=== PATIENT | male | born 1990 ===

== ENCOUNTER 2017-10-06 00:40 | Observation (INO) | payer SELFPAY ==
[2017-10-06] MEDS ORDERED: Sodium Chloride 0.9% 1,000 ML IV STA (01:40)
--- NOTE | 2017-10-06 02:02 | ED PDOC ---
HPI: Abdomen Chief Complaint (Provider): RLQ pain x 3 days History Per: Patient History/Exam Limitations: no limitations Onset/Duration Of Symptoms: Days (3) Severity: Severe Pain Scale Rating Of: 9 Location Of Pain/Discomfort: RLQ, Periumbilical Quality Of Discomfort: Sharp Associated Symptoms: Chills, Nausea, Vomiting, Diarrhea. denies: Fever, Back Pain, Chest Pain, Urinary Symptoms Exacerbating Factors: Movement Alleviating Factors: None Additional History Per: Patient <Shabbir Leo - Last Filed: 10/06/17 05:10> <Jamshid Harper - Last Filed: 10/07/17 05:41> Chief Complaint (Nursing): Abdominal Pain Additional Complaint(s): 26 year old male presents with worsening abdominal pain over past 3 days. First day patient had pain RLQ. Day 2 pain with associated nausea and diarrhea. Day 3 worsening pain, 9/10 in severity, now radiating to periumbilical area and with associated chills, mild nausea. No diarrhea today. He took Motrin without improvement of pain. No dyspnea, chest pain, testicular pain, or urinary symptoms, No surgical hx. (Shabbir Leo) Supervising Attending Note - Supervising Attending Note The Documented history was done by the: [employer] Executive Director The documented physical exam was done by the: Physician [employer] Executive Director - Attestation: I have personally seen and examined this patient.: Yes I have fully participated in the care of the patient.: Yes I have reviewed all pertinent clinical information: Yes <Jamshid Harper - Last Filed: 10/07/17 05:41> Past Medical History - Medical History PMH: No Chronic Diseases - Surgical History Surgical History: No Surg Hx - Family History Family History: States: Unknown Family Hx <Shabbir Leo - Last Filed: 10/06/17 05:10> <Jamshid Harper - Last Filed: 10/07/17 05:41> Vital Signs: Last Vital Signs Temp 98.3 F 10/07/17 00:32 Pulse 87 10/07/17 00:32 Resp 18 10/07/17 00:32 BP 134/80 10/07/17 00:32 Pulse Ox 97 10/07/17 00:32 - Allergies Allergies/Adverse Reactions: Allergies Allergy/AdvReac Type Severity Reaction Status Date / Time No Known Allergies Allergy Verified 10/06/17 00:49 Review of Systems Constitutional: Positive for: Chills. Negative for: Fever Eyes: Negative for: Vision Change ENT: Negative for: Nose Congestion Cardiovascular: Negative for: Chest Pain, Palpitations, Light Headedness Respiratory: Negative for: Cough, Shortness of Breath Gastrointestinal: Positive for: Nausea, Abdominal Pain, Diarrhea. Negative for : Vomiting, Constipation Genitourinary Male: Negative for: Dysuria, Frequency, Hematuria, Scrotal Pain Skin: Negative for: Rash Neurological: Negative for: Weakness, Numbness, Altered Mental Status Psych: Negative for: Anxiety, Depression <Shabbir Leo - Last Filed: 10/06/17 05:10> Physical Exam - Reviewed Vital Signs Reviewed: Yes - Physical Exam Appears: Positive for: Uncomfortable Head Exam: Positive for: ATRAUMATIC, NORMAL INSPECTION, NORMOCEPHALIC Skin: Positive for: Normal Color, Warm Eye Exam: Positive for: Normal appearance, EOMI, PERRL ENT: Positive for: Normal ENT Inspection Neck: Positive for: Normal, Painless ROM Cardiovascular/Chest: Positive for: Regular Rate, Rhythm, Tachycardia. Negative for: JVD, Murmur Respiratory: Positive for: Normal Breath Sounds. Negative for: Rales, Rhonchi, Stridor, Wheezing, Respiratory Distress Gastrointestinal/Abdominal: Positive for: Tenderness (RLQ, periumbilcal, + rovsings, +psoas, +obturator). Negative for: Distended, Rebound Extremity: Negative for: Tenderness, Pedal Edema Neurologic/Psych: Positive for: Alert, accounts receivable representative II-XII, Mood/Affect (appropriate) <Shabbir Leo - Last Filed: 10/06/17 05:10> - Laboratory Results Result Diagrams: 10/06/17 02:50 10/06/17 02:50 - ECG O2 Sat by Pulse Oximetry: 99 <Shabbir Leo - Last Filed: 10/06/17 05:10> - Laboratory Results Result Diagrams: 10/06/17 02:50 10/06/17 16:40 <Jamshid Harper - Last Filed: 10/07/17 05:41> - Progress ED Course And Treament: TIME 1:45 : 26 year old male with worsening RLQ pain, nausea vomiting, significantly tender abdomen Rule out appendicitis, unlikely nephrolithiasis given absence of urinary symptoms --CBC --CMP -COAGS --LIPASE --URINE DIP --BLOOD CULTURE --MORPHINE 2MG --1L NS BOLUS Case d/w Dr. Harper TIME: 5:00 pain persists, no nausea. results of labs/imaging d/w patient. WBC: 15, K+: 5.2 Zosyn x 1 Surgery consult - Dr. Naik. CT A/P results : FINDINGS: Lung bases: No acute findings. ABDOMEN: Liver: Fatty infiltration. Gallbladder and bile ducts: No calcified stones. No ductal dilation. Pancreas: No ductal dilation. No mass. Spleen: No splenomegaly. Adrenals: No mass. Kidneys and ureters: No mass. No hydronephrosis. Stomach and bowel: No definite mural thickening. No obstruction. PELVIS: Appendix: Enlarged appendix, measuring up to 1.2 cm in diameter. Mucosal enhancement. Mild stranding about appendix. Bladder: Unremarkable. Reproductive: Unremarkable as visualized. ABDOMEN and PELVIS: Intraperitoneal space: Small free fluid within pelvis. No free air. Bones/joints: No acute fracture. Soft tissues: Tiny umbilical hernia containing fat. Tiny inguinal hernias containing fat. Vasculature: Unremarkable. No aneurysm. Lymph nodes: No pathologically enlarged lymph nodes. IMPRESSION: 1. Acute appendicitis. 2. Incidental/non-acute findings are described above. Patient to be admitted for acute appendicitis. Case was discussed with Dr. Harper (Shabbir Leo) Disposition - Disposition Disposition Time: 05:12 - Pt Status Changed To: Hospital Disposition Of: Inpatient - Admit Certification Admit to Inpatient:: After my assessment, the patient will require hospitalization for at least two midnights. This is because of the severity of symptoms shown, intensity of services needed, and/or the medical risk in this patient being treated as an outpatient. <Shabbir Leo - Last Filed: 10/06/17 05:10> <Jamshid Harper - Last Filed: 10/07/17 05:41> - Clinical Impression Clinical Impression: Acute appendicitis - Disposition Condition: STABLE
[2017-10-06] MEDS ORDERED: Morphine 4 MG/ML VIAL ONE (02:45)
[2017-10-06 03:10] LABS: BASO % 0.2 % (0.0-2.0); EOS # 0.1 K/uL (0.0-0.7); EOS % 0.8 % (0.0-4.0); HEMOGLOBIN 13.1 g/dL (12.0-18.0); LYMPH # 1.7 K/uL (1.0-4.3); LYMPH % 11.4 % (20.0-40.0); MEAN CORPUSCULAR HEMOGLOBIN 22.5 pg (27.0-31.0); MEAN CORPUSCULAR HGB CONC 32.4 g/dL (33.0-37.0); MEAN PLATELET VOLUME 8.4 fl (7.2-11.7); MONO # 0.9 K/uL (0.0-0.8); MONO % 5.9 % (0.0-10.0); NEUT # 12.2 K/uL (1.8-7.0); NEUT % 81.7 % (50.0-75.0); NRBC % 0.1 % (0.0-0.0); RBC 5.81 Mil/uL (4.40-5.90); RED CELL DISTRIBUTION WIDTH 14.4 % (11.5-14.5)
[2017-10-06 03:15] LABS: URINE BACTERIA RARE (<OCC); URINE BILIRUBIN NEGATIVE (NEGATIVE); URINE BLOOD NEGATIVE (NEGATIVE); URINE CLARITY CLEAR (Clear); URINE COLOR STRAW (YELLOW); URINE GLUCOSE (UA) NEG (Normal); URINE LEUKOCYTE ESTERASE NEG Leu/uL (Negative); URINE PROTEIN NEGATIVE (NEGATIVE); URINE UROBILINOGEN 0.2-1.0 mg/dL (0.2-1.0)
[2017-10-06 03:17] LABS: INR 1.1 (0.9-1.2); PROTHROMBIN TIME 11.8 Seconds (9.8-13.1)
[2017-10-06 03:19] LABS: CALCIUM 9.3 mg/dL (8.4-10.2); GFR AFRICAN-AMERICAN > 60; GFR NON-AFRICAN AMERICAN > 60; LIPASE 59 U/L (23-300)
[2017-10-06 03:21] LABS: ALB/GLOB RATIO 1.4 (1.0-2.1); ALBUMIN 4.8 g/dL (3.5-5.0); ALT/SGPT 32 U/L (21-72); AST/SGOT 41 U/L (17-59); BLOOD UREA NITROGEN 16 mg/dl (9-20)
[2017-10-06] MEDS ORDERED: Sodium Chloride 0.9% 100 ML ONE (03:52)
[2017-10-06] MEDS ORDERED: Iohexol 300 100 ML IJ ONE (03:52)
--- NOTE | 2017-10-06 04:52 | CT ---
EXAM: CT Abdomen and Pelvis With Intravenous Contrast CLINICAL HISTORY: 26 years and, male; Pain; Abdominal pain; Localized; Right lower quadrant (rlq); Additional info: Abd pain TECHNIQUE: Axial computed tomography images of the abdomen and pelvis with intravenous contrast. All CT scans at this facility use one or more dose reduction techniques, viz.: automated exposure control; ma/kV adjustment per patient size (including targeted exams where dose is matched to indication; i.e. head); or iterative reconstruction technique. Coronal and sagittal reformatted images were created and reviewed. CONTRAST: 95 mL of OMNIPAQUE administered intravenously. COMPARISON: No relevant prior studies available. FINDINGS: Lung bases: No acute findings. ABDOMEN: Liver: Fatty infiltration. Gallbladder and bile ducts: No calcified stones. No ductal dilation. Pancreas: No ductal dilation. No mass. Spleen: No splenomegaly. Adrenals: No mass. Kidneys and ureters: No mass. No hydronephrosis. Stomach and bowel: No definite mural thickening. No obstruction. PELVIS: Appendix: Enlarged appendix, measuring up to 1.2 cm in diameter. Mucosal enhancement. Mild stranding about appendix. Bladder: Unremarkable. Reproductive: Unremarkable as visualized. ABDOMEN and PELVIS: Intraperitoneal space: Small free fluid within pelvis. No free air. Bones/joints: No acute fracture. Soft tissues: Tiny umbilical hernia containing fat. Tiny inguinal hernias containing fat. Vasculature: Unremarkable. No aneurysm. Lymph nodes: No pathologically enlarged lymph nodes. IMPRESSION: 1. Acute appendicitis. 2. Incidental/non-acute findings are described above.
[2017-10-06] MEDS ORDERED: Piperacillin/Tazobact 3.375 GM in Sodium Chloride 0.9% 100 ML IV STA (04:59)
[2017-10-06] MEDS ORDERED: HYDROmorphone 0.5 mg/0.5 ml ISec IVP PRN ×2 (05:12→10:05)
[2017-10-06 05:22] LABS: MEAN CELL VOLUME 69.5 fl (80.0-94.0)
[2017-10-06] MEDS ORDERED: Piperacillin/Tazobact 3.375 gm Inj IVPB ONE (05:26)
--- NOTE | 2017-10-06 05:39 | CP.PCM.HP ---
History of Present Illness - History of Present Illness History of Present Illness: PMD: Ed Demarco MD Chief Complaint: Abdominal Pain The patient was seen and examined in the ED HPI: 26 years old male with no significant past medical history comes with 3 days of Progressively worsening Left lower Quadrant abdominal pain, radiating to the periumbilical region and associated with nausea, vomits, diarrhea, and Chills.The pain was not relieved with Ibuprofen. No SOB, Chest pain, Dysuria, nor urinary frequency, no trauma. The severity of the pain was 02/03 PMH: No chronic Diseases PSH: Denies SH: occasional Alcohol use; never Smoked; no illegal drug use; Live with family ; FH: Family with Asthma Allergies: NKDA Medication: None Present on Admission - Present on Admission Any Indicators Present on Admission: No History of DVT/PE: No History of Uncontrolled Diabetes: No Urinary Catheter: No Decubitus Ulcer Present: No Review of Systems - Constitutional Constitutional: Chills, Headache. absent: Anorexia, Fatigue, Fever - EENT Eyes: absent: Floaters, Itchy Eyes, Requires Corrective Lenses, Sees Flashes Ears: absent: Decreased Hearing, Ear Discharge, Tinnitus Nose/Mouth/Throat: absent: Epistaxis, Nasal Congestion, Nasal Discharge, Sinus Pain, Sinus Pressure - Cardiovascular Cardiovascular: absent: Chest Pain, Dyspnea, Edema - Respiratory Respiratory: absent: Cough, Dyspnea, Wheezing, Stridor - Gastrointestinal Gastrointestinal: Abdominal Pain, Diarrhea, Nausea, Vomiting. absent: Constipation - Genitourinary Genitourinary: absent: Dysuria, Flank Pain, Hematuria, Urinary Frequency - Musculoskeletal Musculoskeletal: absent: Arthralgias, Back Pain, Joint Swelling, Muscle Weakness - Integumentary Integumentary: absent: Pruritus, Rash, Skin Ulcer, Sores, Striae, Swelling - Neurological Neurological: Headaches. absent: Confusion, Dizziness, Focal Weakness, Weakness - Psychiatric Psychiatric: absent: Anxiety, Depression, Panic Attacks - Endocrine Endocrine: absent: Palpitations, Polydipsia, Polyphagia, Polyuria - Hematologic/Lymphatic Hematologic: absent: Easy Bleeding, Easy Bruising Past Patient History - Past Medical History & Family History Past Medical History?: No - Past Social History Smoking Status: Never Smoked Chewing Tobacco Use: No Cigar Use: No Alcohol: Occasional Home Situation {Lives}: With Family - CARDIAC Hx Cardiac Disorders: No - PULMONARY Hx Respiratory Disorders: No - NEUROLOGICAL Hx Neurological Disorder: No - HEENT Hx HEENT Problems: No - RENAL Hx Chronic Kidney Disease: No - ENDOCRINE/METABOLIC Hx Endocrine Disorders: No - HEMATOLOGICAL/ONCOLOGICAL Hx Blood Disorders: No - INTEGUMENTARY Hx Dermatological Problems: No - MUSCULOSKELETAL/RHEUMATOLOGICAL Hx Musculoskeletal Disorders: No - GASTROINTESTINAL Hx Gastrointestinal Disorders: No - GENITOURINARY/GYNECOLOGICAL Hx Genitourinary Disorders: No - PSYCHIATRIC Hx Psychophysiologic Disorder: No Hx Substance Use: No - SURGICAL HISTORY Hx Surgeries: No - ANESTHESIA Hx Anesthesia: No Meds Allergies/Adverse Reactions: Allergies Allergy/AdvReac Type Severity Reaction Status Date / Time No Known Allergies Allergy Verified 10/06/17 00:49 Physical Exam - Constitutional Appears: No Acute Distress - Head Exam Head Exam: ATRAUMATIC, NORMAL INSPECTION, NORMOCEPHALIC - Eye Exam Eye Exam: EOMI, Normal appearance Pupil Exam: NORMAL ACCOMODATION, PERRL - ENT Exam ENT Exam: Mucous Membranes Moist, Normal Exam, Normal External Ear Exam - Neck Exam Neck exam: Positive for: Full Rom, Normal Inspection. Negative for: Lymphadenopathy, Tenderness - Respiratory Exam Respiratory Exam: Clear to Auscultation Bilateral. absent: Rales, Rhonchi, Wheezes, Stridor - Cardiovascular Exam Cardiovascular Exam: REGULAR RHYTHM, RRR, +S1, +S2. absent: Gallop, JVD - GI/Abdominal Exam Additional comments: Flat, soft, decreased bowel sounds, pain at RLQ and the periumbilical region, no guarding, moderate rebound tenderness present - Rectal Exam Rectal Exam: Deferred - Extremities Exam Extremities exam: Positive for: full ROM, normal inspection. Negative for: calf tenderness, pedal edema - Back Exam Back exam: CVA tenderness (R), NORMAL INSPECTION. absent: CVA tenderness (L) - Neurological Exam Neurological exam: Alert, CN II-XII Intact, Oriented x3, Reflexes Normal - Psychiatric Exam Psychiatric exam: Normal Affect, Normal Mood - Skin Skin Exam: Dry, Intact, Normal Color, Warm Results - Vital Signs Recent Vital Signs: Last Vital Signs Temp 99.5 F 10/06/17 01:36 Pulse 102 H 10/06/17 01:36 Resp 18 10/06/17 01:36 BP 148/96 H 10/06/17 01:36 Pulse Ox 99 10/06/17 05:12 - Labs Result Diagrams: 10/06/17 02:50 10/06/17 02:50 Labs: Laboratory Results - last 24 hr 10/06/17 10/06/17 10/06/17 02:50 02:50 02:50 WBC 15.0 H RBC 5.81 Hgb 13.1 Hct 40.4 MCV 69.5 L MCH 22.5 L MCHC 32.4 L RDW 14.4 Plt Count 219 MPV 8.4 Neut % (Auto) 81.7 H Lymph % (Auto) 11.4 L Hawkins % (Auto) 5.9 Eos % (Auto) 0.8 Baso % (Auto) 0.2 Neut # (Auto) 12.2 H Lymph # (Auto) 1.7 Hawkins # (Auto) 0.9 H Eos # (Auto) 0.1 Baso # (Auto) 0.0 PT 11.8 INR 1.1 APTT 34.0 Sodium 138 Potassium 5.2 H Chloride 99 Carbon Dioxide 27 Anion Gap 17 BUN 16 Creatinine 1.0 Est GFR ( Amer) > 60 Est GFR (Non-Af Amer) > 60 Random Glucose 115 H Calcium 9.3 Total Bilirubin 0.6 AST 41 ALT 32 Alkaline Phosphatase 91 Total Protein 8.1 Albumin 4.8 Globulin 3.3 Albumin/Globulin Ratio 1.4 Lipase 59 Urine Color Urine Clarity Urine pH Ur Specific [place] Urine Protein Urine Glucose (UA) Urine Ketones Urine Blood Urine Nitrate Urine Bilirubin Urine Urobilinogen Ur Leukocyte Esterase Urine RBC (Auto) Urine Microscopic WBC Urine Bacteria 10/06/17 02:50 WBC RBC Hgb Hct MCV MCH MCHC RDW Plt Count MPV Neut % (Auto) Lymph % (Auto) Hawkins % (Auto) Eos % (Auto) Baso % (Auto) Neut # (Auto) Lymph # (Auto) Hawkins # (Auto) Eos # (Auto) Baso # (Auto) PT INR APTT Sodium Potassium Chloride Carbon Dioxide Anion Gap BUN Creatinine Est GFR ( Amer) Est GFR (Non-Af Amer) Random Glucose Calcium Total Bilirubin AST ALT Alkaline Phosphatase Total Protein Albumin Globulin Albumin/Globulin Ratio Lipase Urine Color Straw Urine Clarity Clear Urine pH 6.0 Ur Specific [place] 1.017 Urine Protein Negative Urine Glucose (UA) Neg Urine Ketones Negative Urine Blood Negative Urine Nitrate Negative Urine Bilirubin Negative Urine Urobilinogen 0.2-1.0 Ur Leukocyte Esterase Neg Urine RBC (Auto) 1 Urine Microscopic WBC < 1 Urine Bacteria Rare - Imaging and Cardiology CT scan - abdomen Status: Report reviewed by me Additional comment: EXAM: CT Abdomen and Pelvis With Intravenous Contrast FINDINGS: Lung bases: No acute findings. ABDOMEN: Liver: Fatty infiltration. Gallbladder and bile ducts: No calcified stones. No ductal dilation. Pancreas: No ductal dilation. No mass. Spleen: No splenomegaly. Adrenals: No mass. Kidneys and ureters: No mass. No hydronephrosis. Stomach and bowel: No definite mural thickening. No obstruction. PELVIS: Appendix: Enlarged appendix, measuring up to 1.2 cm in diameter. Mucosal enhancement. Mild stranding about appendix. Bladder: Unremarkable. Reproductive: Unremarkable as visualized. ABDOMEN and PELVIS: Intraperitoneal space: Small free fluid within pelvis. No free air. Bones/joints: No acute fracture. Soft tissues: Tiny umbilical hernia containing fat. Tiny inguinal hernias containing fat. Vasculature: Unremarkable. No aneurysm. Lymph nodes: No pathologically enlarged lymph nodes. IMPRESSION: 1. Acute appendicitis. 2. Incidental/non-acute findings are described above. Assessment & Plan - Assessment and Plan (Free Text) Assessment: #. Acute Appendicitis #. Leukocytosis #. hyperkalemia Plan: 26 years old male with no significant past medical history comes with 3 days of Progressively worsening Left lower Quadrant abdominal pain, radiating to the periumbilical region and associated with nausea, vomits, diarrhea, and Chills.The pain was not relieved with Ibuprofen. No SOB, Chest pain, Dysuria, nor urinary frequency, no trauma. The severity of the pain was 9/10 #. Acute Appendicitis - Consult Dr Naik surgery - NPO - Zosyn - pain management - IV Fluids #. Neutrophylic Leukocytosis - Follow WBC #. Hyperkalemia - Follow Electrolytes #. DVT prophylaxis with SCD and with Lovenox post surgery as of 10/07/17 #. Code Status: Full - Date & Time Date: 10/06/17 Time: 05:39
[2017-10-06] MEDS: Sodium Chloride 0.9% 1,000 ML IV SCH ×2 (05:46→14:00)
--- NOTE | 2017-10-06 06:03 | CP.PCM.CON ---
History of Present Illness - History of Present Illness History of Present Illness: Surgery 26M w no sig PMH came to ED with RLQ abd pain started 2 days ago. Pain is located on RLQ and periumbilical area. Associated with nausea, vomiting, diarrhea. No bloody, non bilious. Pt also reports that he hit his abdomen and pain is worsen. Nothing relieved the pain and worsen with movement. Also reports anorexia, abd bloating and firmness. Denies fever, chest pain, sick contact, recent travel, hemoptesis,hemetemesis, dysuria, hematuria, hematochezia , melena . First time having these symptoms. Surgery is consulted to evaluate for appendicitis. WBC is 15. Mild tachycardia [address] reads acute appendicitis with 1.2 dilated appendix. Pt is consent for OR. Last PO was yesterday. PMH: Denies PSH: Denies Med: none Review of Systems - Review of Systems Review of Systems: See HPI Past Patient History - Past Social History Smoking Status: Never Smoked - PSYCHIATRIC Hx Substance Use: No - SURGICAL HISTORY Hx Surgeries: No - ANESTHESIA Hx Anesthesia: No Meds Allergies/Adverse Reactions: Allergies Allergy/AdvReac Type Severity Reaction Status Date / Time No Known Allergies Allergy Verified 10/06/17 00:49 - Medications Medications: Current Medications Acetaminophen (Tylenol 650 Mg Supp) 650 mg AR Q4 PRN PRN Reason: Fever >100.4 F Hydromorphone HCl (Dilaudid) 1 mg IVP Q4 PRN PRN Reason: Pain, severe (8-10) Piperacillin Sod/Tazobactam (Sod 3.375 gm/ Sodium Chloride) 100 mls @ 100 mls/ hr IV STAT STA PRN Reason: Protocol Stop: 10/06/17 05:58 Last Admin: 10/06/17 05:45 Dose: 100 mls/hr Sodium Chloride (Sodium Chloride 0.9%) 1,000 mls @ 125 mls/hr IV .Q8H [facility] Stop: 10/07/17 05:11 Last Admin: 10/06/17 05:46 Dose: 125 mls/hr Ondansetron HCl (Zofran Inj) 4 mg IVP Q4 PRN PRN Reason: Nausea/Vomiting Physical Exam - Constitutional Appears: Non-toxic - Head Exam Head Exam: ATRAUMATIC, NORMAL INSPECTION, NORMOCEPHALIC - Eye Exam Eye Exam: EOMI, Normal appearance, PERRL Pupil Exam: NORMAL ACCOMODATION, PERRL - ENT Exam ENT Exam: Mucous Membranes Moist, Normal Exam - Neck Exam Neck exam: Positive for: Normal Inspection - Respiratory Exam Respiratory Exam: Clear to Auscultation Bilateral, NORMAL BREATHING PATTERN - Cardiovascular Exam Cardiovascular Exam: Tachycardia, REGULAR RHYTHM, +S1, +S2 - GI/Abdominal Exam GI & Abdominal Exam: Distended, Firm, Guarding, Normal Bowel Sounds, Rebound, Tenderness. absent: Hernia, Hypoactive Bowel Sounds, Mass, Organomegaly, Pulsatile Mass, Rigid Additional comments: RLQ TTP, Periumbilical TTP. Psoas sign + , obturator sign + - Extremities Exam Extremities exam: Positive for: full ROM, normal inspection - Back Exam Back exam: NORMAL INSPECTION - Psychiatric Exam Psychiatric exam: Normal Affect, Normal Mood - Skin Skin Exam: Dry, Intact, Normal Color, Warm Results - Vital Signs Recent Vital Signs: Last Vital Signs Temp 98.3 F 10/06/17 05:41 Pulse 80 10/06/17 05:41 Resp 18 10/06/17 05:41 BP 141/87 10/06/17 05:41 Pulse Ox 97 10/06/17 05:41 - Labs Result Diagrams: 10/06/17 02:50 10/06/17 02:50 Labs: Laboratory Results - last 24 hr 10/06/17 10/06/17 10/06/17 02:50 02:50 02:50 WBC 15.0 H RBC 5.81 Hgb 13.1 Hct 40.4 MCV 69.5 L MCH 22.5 L MCHC 32.4 L RDW 14.4 Plt Count 219 MPV 8.4 Neut % (Auto) 81.7 H Lymph % (Auto) 11.4 L Lamb % (Auto) 5.9 Eos % (Auto) 0.8 Baso % (Auto) 0.2 Neut # (Auto) 12.2 H Lymph # (Auto) 1.7 Lamb # (Auto) 0.9 H Eos # (Auto) 0.1 Baso # (Auto) 0.0 PT 11.8 INR 1.1 APTT 34.0 Sodium 138 Potassium 5.2 H Chloride 99 Carbon Dioxide 27 Anion Gap 17 BUN 16 Creatinine 1.0 Est GFR ( Amer) > 60 Est GFR (Non-Af Amer) > 60 Random Glucose 115 H Calcium 9.3 Total Bilirubin 0.6 AST 41 ALT 32 Alkaline Phosphatase 91 Total Protein 8.1 Albumin 4.8 Globulin 3.3 Albumin/Globulin Ratio 1.4 Lipase 59 Urine Color Urine Clarity Urine pH Ur Specific [place] Urine Protein Urine Glucose (UA) Urine Ketones Urine Blood Urine Nitrate Urine Bilirubin Urine Urobilinogen Ur Leukocyte Esterase Urine RBC (Auto) Urine Microscopic WBC Urine Bacteria 10/06/17 02:50 WBC RBC Hgb Hct MCV MCH MCHC RDW Plt Count MPV Neut % (Auto) Lymph % (Auto) Lamb % (Auto) Eos % (Auto) Baso % (Auto) Neut # (Auto) Lymph # (Auto) Lamb # (Auto) Eos # (Auto) Baso # (Auto) PT INR APTT Sodium Potassium Chloride Carbon Dioxide Anion Gap BUN Creatinine Est GFR ( Amer) Est GFR (Non-Af Amer) Random Glucose Calcium Total Bilirubin AST ALT Alkaline Phosphatase Total Protein Albumin Globulin Albumin/Globulin Ratio Lipase Urine Color Straw Urine Clarity Clear Urine pH 6.0 Ur Specific [place] 1.017 Urine Protein Negative Urine Glucose (UA) Neg Urine Ketones Negative Urine Blood Negative Urine Nitrate Negative Urine Bilirubin Negative Urine Urobilinogen 0.2-1.0 Ur Leukocyte Esterase Neg Urine RBC (Auto) 1 Urine Microscopic WBC < 1 Urine Bacteria Rare Assessment & Plan - Assessment and Plan (Free Text) Assessment: Acute appendicitis WBC 15 CT: acute appendicitis with 1.2cm dilated appendix and fat stranding -OR 9AM -NPO -IVF -ABX -Nausea/pain control TANIA Naik's PA
[2017-10-06] MEDS ORDERED: Propofol 10 mg/ml Inj (20 ML) ONE (07:35)
[2017-10-06] MEDS ORDERED: Lidocaine 4% (Laryng-O-Jet) Kit MM ONE (07:36)
[2017-10-06] MEDS ORDERED: Rocuronium 10 mg/ml (5 ml) ONE (07:36)
[2017-10-06] MEDS ORDERED: Midazolam 2 MG/2 ML VIAL ONE (07:36)
[2017-10-06] MEDS ORDERED: Succinylcholine 200 mg/10 ml Inj IV ONE (07:36)
[2017-10-06] MEDS ORDERED: Bupivacaine HCl 0.5% PF (30 ml) Inj ONE (08:27)
[2017-10-06] MEDS ORDERED: Lactated Ringer's 1,000 ML IV ONE (08:53)
[2017-10-06 09:03] LABS: BLOOD UREA NITROGEN 14 mg/dl (9-20); CALCIUM 9.1 mg/dL (8.4-10.2); GFR AFRICAN-AMERICAN > 60; GFR NON-AFRICAN AMERICAN > 60
[2017-10-06] MEDS ORDERED: Neostigmine 1:1000 (1 mg/ml) Inj ONE (09:17)
[2017-10-06] MEDS ORDERED: Bupivacaine HCl 0.5% PF (30 ml) Inj IJ ONE (09:30)
[2017-10-06] MEDS ORDERED: Sodium Chloride 0.9% 500 ML IV ONE (09:53)
--- NOTE | 2017-10-06 09:58 | PCM.SURG1 ---
Surgeon's Initial Post Op Note - Surgeon's Notes Surgeon: MD Gumaro Mechanical Design Engineer: LEATHA Maher. ZACH [id number] Pre-Operative Diagnosis: Acute appendicitis Operative Findings: Inflammed appendix Post-Operative Diagnosis: Acute appendicitis Operation Performed: Laparoscopic appendectomy Specimen/Specimens Removed: Appendix Estimated Blood Loss: EBL {In ML}: 5 Date of Surgery/Procedure: 10/06/17 Time of Surgery/Procedure: 09:00
[2017-10-06] MEDS ORDERED: Oxycodone/Acetaminophen 5/325 mg Tab PO PRN (10:00)
[2017-10-06] MEDS: Piperacillin/Tazobact 3.375 GM in Sodium Chloride 0.9% 100 ML IVPB SCH ×3 (11:26→21:11)
[2017-10-06 17:40] LABS: BLOOD UREA NITROGEN 11 mg/dl (9-20); GFR AFRICAN-AMERICAN > 60; GFR NON-AFRICAN AMERICAN > 60
[2017-10-07] MEDS: Piperacillin/Tazobact 3.375 GM in Sodium Chloride 0.9% 100 ML IVPB SCH ×2 (04:42→09:02)
[2017-10-07 06:46] LABS: BASO % 0.2 % (0.0-2.0); EOS % 0.4 % (0.0-4.0); HEMOGLOBIN 12.6 g/dL (12.0-18.0); LYMPH # 1.6 K/uL (1.0-4.3); LYMPH % 17.5 % (20.0-40.0); MEAN CORPUSCULAR HEMOGLOBIN 22.7 pg (27.0-31.0); MEAN CORPUSCULAR HGB CONC 32.8 g/dL (33.0-37.0); MEAN PLATELET VOLUME 8.4 fl (7.2-11.7); MONO # 0.6 K/uL (0.0-0.8); MONO % 6.4 % (0.0-10.0); NEUT # 6.7 K/uL (1.8-7.0); NEUT % 75.5 % (50.0-75.0); RBC 5.54 Mil/uL (4.40-5.90); WHITE BLOOD COUNT 8.9 K/uL (4.8-10.8)
[2017-10-07 06:55] LABS: MEAN CELL VOLUME 69.1 fl (80.0-94.0)
[2017-10-07 07:03] LABS: BLOOD UREA NITROGEN 10 mg/dl (9-20); CALCIUM 9.1 mg/dL (8.4-10.2); GFR AFRICAN-AMERICAN > 60; GFR NON-AFRICAN AMERICAN > 60
[2017-10-07 08:00] VITALS: BP 130/84; PULSE 72; RESP 20; TEMP 97.7; O2SAT 96
--- NOTE | 2017-10-07 08:02 | CP.PCM.PN ---
<Doroteo Peguero - Last Filed: 10/07/17 07:59> Subjective - Date & Time of Evaluation Date of Evaluation: 10/07/17 Time of Evaluation: 07:25 - Subjective Subjective: Patient seen and examined. No acute events over night. Tolerating diet. No complaints. Objective - Vital Signs/Intake and Output Vital Signs (last 24 hours): Temp Pulse Resp BP Pulse Ox 98.3 F 87 18 134/80 97 10/07/17 00:32 10/07/17 00:32 10/07/17 00:32 10/07/17 00:32 10/07/17 00:32 - Medications Medications: Current Medications Acetaminophen (Tylenol 650 Mg Supp) 650 mg AK Q4 PRN PRN Reason: Fever >100.4 F Acetaminophen (Tylenol 325mg Tab) 650 mg PO Q6 PRN PRN Reason: Pain, Mild (1-3) Last Admin: 10/07/17 02:36 Dose: 650 mg Enoxaparin Sodium (Lovenox) 40 mg SC DAILY ANANDA PRN Reason: Protocol Piperacillin Sod/Tazobactam (Sod 3.375 gm/ Sodium Chloride) 100 mls @ 100 mls/ hr IVPB Q6 ANANDA PRN Reason: Protocol Last Admin: 10/07/17 04:42 Dose: 100 mls/hr Ondansetron HCl (Zofran Inj) 4 mg IVP Q4 PRN PRN Reason: Nausea/Vomiting Oxycodone/Acetaminophen (Percocet 5/325 Mg Tab) 1 tab PO Q4 PRN PRN Reason: Pain, moderate (4-7) Stop: 10/09/17 10:01 Last Admin: 10/06/17 13:59 Dose: 1 tab - Labs Labs: 10/07/17 06:00 10/07/17 06:00 PT 11.8 Seconds (9.8-13.1) 10/06/17 02:50 INR 1.1 (0.9-1.2) 10/06/17 02:50 APTT 34.0 Seconds (25.6-37.1) 10/06/17 02:50 - Constitutional Appears: No Acute Distress - Head Exam Head Exam: NORMOCEPHALIC - Eye Exam Eye Exam: EOMI, Normal appearance - ENT Exam ENT Exam: Mucous Membranes Moist - Respiratory Exam Respiratory Exam: NORMAL BREATHING PATTERN - Cardiovascular Exam Cardiovascular Exam: +S1, +S2 - GI/Abdominal Exam GI & Abdominal Exam: Soft - Neurological Exam Neurological Exam: Alert, Awake, Oriented x3 - Psychiatric Exam Psychiatric exam: Normal Mood - Skin Skin Exam: Dry, Intact, Warm Assessment and Plan - Assessment and Plan (Free Text) Assessment: 26M with acute appendicitis s/p laparoscopic appendectomy POD 1 Plan: Tolerating diet D/C home with analgesic and antibiotic F/u with Dr. Naik in office Further recs per Dr. Lyla DOMINGUEZ PGY2 <Javier Arita - Last Filed: 10/07/17 10:34> Subjective - Date & Time of Evaluation Time of Evaluation: 09:50 - Subjective Subjective: Patient was seen and examined at the bedside. Agree with resident's note above. Objective - Vital Signs/Intake and Output Vital Signs (last 24 hours): Temp Pulse Resp BP Pulse Ox 97.7 F 72 20 130/84 96 10/07/17 07:59 10/07/17 07:59 10/07/17 07:59 10/07/17 07:59 10/07/17 07:59 - Medications Medications: Current Medications Acetaminophen (Tylenol 650 Mg Supp) 650 mg AK Q4 PRN PRN Reason: Fever >100.4 F Acetaminophen (Tylenol 325mg Tab) 650 mg PO Q6 PRN PRN Reason: Pain, Mild (1-3) Last Admin: 10/07/17 02:36 Dose: 650 mg Enoxaparin Sodium (Lovenox) 40 mg SC DAILY ANANDA PRN Reason: Protocol Last Admin: 10/07/17 09:01 Dose: 40 mg Piperacillin Sod/Tazobactam (Sod 3.375 gm/ Sodium Chloride) 100 mls @ 100 mls/ hr IVPB Q6 ANANDA PRN Reason: Protocol Last Admin: 10/07/17 09:02 Dose: 100 mls/hr Ondansetron HCl (Zofran Inj) 4 mg IVP Q4 PRN PRN Reason: Nausea/Vomiting Oxycodone/Acetaminophen (Percocet 5/325 Mg Tab) 1 tab PO Q4 PRN PRN Reason: Pain, moderate (4-7) Stop: 10/09/17 10:01 Last Admin: 10/06/17 13:59 Dose: 1 tab - Labs Labs: 10/07/17 06:00 10/07/17 06:00 PT 11.8 Seconds (9.8-13.1) 10/06/17 02:50 INR 1.1 (0.9-1.2) 10/06/17 02:50 APTT 34.0 Seconds (25.6-37.1) 10/06/17 02:50 - GI/Abdominal Exam Additional comments: soft, mild mayo-incisional tenderness, ND, BS+, no rebound, no guarding, incisions clean, no erythema, no drainage, dermobond in place Assessment and Plan - Assessment and Plan (Free Text) Plan: - Clear for discharge home from general surgery stand point - Patient will follow up with Dr. Naik in the office in 10 days to 2 weeks
[2017-10-07] MEDS ORDERED: Enoxaparin 40 mg Syringe SC SCH (09:00)
--- NOTE | 2017-10-07 13:34 | CP.PCM.DIS ---
Provider - Provider Date of Admission: 10/06/17 04:59 Attending physician: Jose L Alonzo Primary care physician: PMD: Ed Demarco MD Consults: Dr. Naik, general surgeon Time Spent in preparation of Discharge (in minutes): 25 Hospital Course - Lab Results Lab Results: Micro Results 10/06/17 02:50 Blood Blood Culture - Preliminary NO GROWTH AFTER 24 HOURS 10/06/17 02:50 Blood Blood Culture - Preliminary NO GROWTH AFTER 24 HOURS Most Recent Lab Values WBC 8.9 K/uL (4.8-10.8) 10/07/17 06:00 RBC 5.54 Mil/uL (4.40-5.90) 10/07/17 06:00 Hgb 12.6 g/dL (12.0-18.0) 10/07/17 06:00 Hct 38.3 % (35.0-51.0) 10/07/17 06:00 MCV 69.1 fl (80.0-94.0) L 10/07/17 06:00 MCH 22.7 pg (27.0-31.0) L 10/07/17 06:00 MCHC 32.8 g/dL (33.0-37.0) L 10/07/17 06:00 RDW 14.0 % (11.5-14.5) 10/07/17 06:00 Plt Count 235 K/uL (130-400) 10/07/17 06:00 MPV 8.4 fl (7.2-11.7) 10/07/17 06:00 Neut % (Auto) 75.5 % (50.0-75.0) H 10/07/17 06:00 Lymph % (Auto) 17.5 % (20.0-40.0) L 10/07/17 06:00 [place] % (Auto) 6.4 % (0.0-10.0) 10/07/17 06:00 Eos % (Auto) 0.4 % (0.0-4.0) 10/07/17 06:00 Baso % (Auto) 0.2 % (0.0-2.0) 10/07/17 06:00 Neut # (Auto) 6.7 K/uL (1.8-7.0) 10/07/17 06:00 Lymph # (Auto) 1.6 K/uL (1.0-4.3) 10/07/17 06:00 [place] # (Auto) 0.6 K/uL (0.0-0.8) 10/07/17 06:00 Eos # (Auto) 0.0 K/uL (0.0-0.7) 10/07/17 06:00 Baso # (Auto) 0.0 K/uL (0.0-0.2) 10/07/17 06:00 PT 11.8 Seconds (9.8-13.1) 10/06/17 02:50 INR 1.1 (0.9-1.2) 10/06/17 02:50 APTT 34.0 Seconds (25.6-37.1) 10/06/17 02:50 Sodium 138 mmol/l (132-148) 10/07/17 06:00 Potassium 4.2 MMOL/L (3.6-5.0) 10/07/17 06:00 Chloride 99 mmol/L (98-107) 10/07/17 06:00 Carbon Dioxide 25 mmol/L (22-30) 10/07/17 06:00 Anion Gap 18 (10-20) 10/07/17 06:00 BUN 10 mg/dl (9-20) 10/07/17 06:00 Creatinine 0.9 mg/dl (0.8-1.5) 10/07/17 06:00 Est GFR ( Amer) > 60 10/07/17 06:00 Est GFR (Non-Af Amer) > 60 10/07/17 06:00 Random Glucose 107 mg/dL (75-110) 10/07/17 06:00 Calcium 9.1 mg/dL (8.4-10.2) 10/07/17 06:00 Total Bilirubin 0.6 mg/dl (0.2-1.3) 10/06/17 02:50 AST 41 U/L (17-59) 10/06/17 02:50 ALT 32 U/L (21-72) 10/06/17 02:50 Alkaline Phosphatase 91 U/L (38-126) 10/06/17 02:50 Total Protein 8.1 G/DL (6.3-8.2) 10/06/17 02:50 Albumin 4.8 g/dL (3.5-5.0) 10/06/17 02:50 Globulin 3.3 gm/dL (2.2-3.9) 10/06/17 02:50 Albumin/Globulin Ratio 1.4 (1.0-2.1) 10/06/17 02:50 Lipase 59 U/L (23-300) 10/06/17 02:50 Urine Color Straw (YELLOW) 10/06/17 02:50 Urine Clarity Clear (Clear) 10/06/17 02:50 Urine pH 6.0 (5.0-8.0) 10/06/17 02:50 Ur Specific [place] 1.017 (1.003-1.030) 10/06/17 02:50 Urine Protein Negative mg/dL (NEGATIVE) 10/06/17 02:50 Urine Glucose (UA) Neg mg/dL (Normal) 10/06/17 02:50 Urine Ketones Negative mg/dL (NEGATIVE) 10/06/17 02:50 Urine Blood Negative (NEGATIVE) 10/06/17 02:50 Urine Nitrate Negative (NEGATIVE) 10/06/17 02:50 Urine Bilirubin Negative (NEGATIVE) 10/06/17 02:50 Urine Urobilinogen 0.2-1.0 mg/dL (0.2-1.0) 10/06/17 02:50 Ur Leukocyte Esterase Neg Devendra/uL (Negative) 10/06/17 02:50 Urine RBC (Auto) 1 /hpf (0-3) 10/06/17 02:50 Urine Microscopic WBC < 1 /hpf (0-5) 10/06/17 02:50 Urine Bacteria Rare (<OCC) 10/06/17 02:50 - Hospital Course Hospital Course: 26 year old male with no significant past medical history who presented to the ED complaining of progressively worsening LLQ abdominal pain radiating to the periumbilical region and associated with nausea, vomiting, diarrhea, and chills. The pain was not relieved by ibuprofen. No SOB, chest pain, dysuria, urinary frequency, no trauma. The severity of the pain was 9/10. In the ED, the patient was medicated with antiemetic and analgesia. CT scan revealed acute appendicitis. The patient went to OR on 10/06 for laparascopic appendectomy which was performed without incident by Dr. Naik. The patient was monitored overnight and had no acute events. Today, the patient is being discharged in stable conditions with instruction to follow up with surgeon with appointment. He is being discharged with Percocet and Augmentin for abx coverage. Stable for discharge today. Discharge Exam - Head Exam Head Exam: NORMOCEPHALIC - Additional Findings Additional findings: Physical exam: Constitutional- cooperative, awake, alert Head- NCAT, PERRL Eye- PERRL, EOMI ENT- normal exam, MMM. Neck- normal inspection, supple, no JVD Respiratory- CTAB, no wheezes rales rhonchi Cardiovascular- RRR, +S1, +S2 no MRG GI/Abdominal- normal bowel sounds, soft, no mass, no hsm Skin- warm, dry. laparascopic surgical sites c/d/i. Extremities Exam- normal capillary refill, normal inspection Neurological Exam- alert, awake, oriented Psych- normal mood, normal affect Discharge Plan - Discharge Medications Prescriptions: Amoxicillin/Clavulanate [Augmentin 875 MG-125 MG] 1 tab PO Q12H 5 Days #10 tab oxyCODONE/Acetaminophen [Percocet 5/325 mg Tab] 1 tab PO Q4 PRN #10 tab PRN Reason: Pain, Moderate (4-7) - Follow Up Plan Condition: STABLE Disposition: HOME/ ROUTINE Instructions: Appendicitis, Adult (DC), Amoxicillin and Clavulanate, Appendectomy, Laparoscopic Surgery (DC) Additional Instructions: follow up with Dr Naik-call for an appointment within 1 week Referrals: [facility] [Outside] Tyler Naik MD [Staff Provider] -
--- NOTE | 2017-10-23 14:20 | OP ---
PROCEDURE DATE: 10/06/2017 PREOPERATIVE DIAGNOSIS: Acute appendicitis. POSTOPERATIVE DIAGNOSIS: Acute appendicitis. OPERATION PERFORMED: Laparoscopic appendectomy. SURGEON: Tyler Naik MD SENIOR CORPORATE STRATEGY MANAGER: SECOND SENIOR CORPORATE STRATEGY MANAGER: Dr. Brown. OPERATIVE FINDINGS: Inflamed appendix. ESTIMATED BLOOD LOSS: 5 mL. DESCRIPTION OF PROCEDURE: The patient was taken to the operating room and placed supine on the operating room table. After induction of general anesthesia, a Dale catheter was placed to decompress the bladder and the abdomen was prepped and draped in the standard surgical fashion. A Veress needle was inserted into the abdomen and the abdomen was insufflated. Once the abdomen was insufflated, a 5-mm trocar was placed through the umbilicus and a diagnostic laparoscopy was performed. The diagnostic laparoscopy revealed inflammation in the right lower quadrant. The patient was then placed into the Trendelenburg and left side down position, and a 5 mm suprapubic trocar as well as a 12 mm left-sided trocar were placed under direct vision. The appendix was then found at the base of the cecum, grasped, and pulled upwards. A window was made in the mesoappendix using the [place] dissector. Once the window was made in the mesoappendix, the Endo-KAMRAN was fired across the appendix and the base of the appendix and cecum were severed. A second firing of the Endo-KAMRAN using a vascular load was used to fire across the mesoappendix. Once the mesoappendix was severed, the appendix was placed into an EndoCatch bag. The patient then returned to the flat position. The area was inspected for hemostasis and there was no evidence of bleeding. The right lower quadrant was copiously irrigated and the irrigant was removed. The appendix was then removed via the 12 mm trocar site and the 12 mm trocar and the 5-mm trocars were removed under direct vision. The fascia of the 12 mm trocar site was reapproximated using #0 Vicryl and the skin incisions were closed using #4-0 Monocryl. The patient was then awakened from general anesthesia. The Dale catheter was removed. Sponges, instruments, and needle counts were all correct at the end of the case. Tyler Naik MD
== END 2017-10-07 12:18 | disposition home or self-care (01) ==
LOC: H.ER 00:40 → H.ERHOLD 04:59 → INTOOBSV 04:59 → H.MEDSURG1 06:02
PROVIDERS: ADMIT Internal Medicine; ATTEND Internal Medicine
DX: K35.80 Unspecified acute appendicitis (principal); E87.5 Hyperkalemia; Z82.5 Family history of asthma and other chronic lower respiratory diseases
CPT/HCPCS: 36415; 44970; 74177; 80053; 81003; 83690; 85025; 85610; 85730; 87040; 88304; 96361; 96365; 96375; 99284; G0378; J0330; J1170; J1650; J2001; J2250; J2270; J2543; J2704; J2710; J2765; J3010; J7030; J7120; Q9967